=== PATIENT | male | born 1955 | race Caucasian/White ===

== ENCOUNTER 2016-10-24 08:44 | Emergency (ER) | payer MEDICARE, BC ==
--- NOTE | ~2016-10-24 | CT2 ---
[facility] A Service of [facility] / [facility] RADIOLOGY TEXT RESULTS PATIENT: CASSIE PEDERSON LOCATION: SED : 54 UNIT #: [id number] AGE: [address]: Jasmine Monterroso MD SEX: M ORDER DR: [id number] MR#: [id number] Acc #: [id number] NAME: CASSIE PEDERSON. : 1955 SEX: M STUDY DATE/TIME: 10/24/2016 11:18 UNIT: SED ROOM: STUDY DESCRIPTION: CT Abd and Pelv W Cont Attending Physician: Jasmine Monterroso M.D. Ordering Physician: Jasmine Monterroso M.D. Primary Care Physician: Jacinto Glynn M.D. MEDICAL IMAGING REPORT This report is preliminary unless electronic signature is present. EXAM Abdomen and pelvis CT with contrast HISTORY Bloody stools for the past 2 days after taking Naproxen for the past week. TECHNIQUE Axial images were obtained with oral and intravenous contrast. 100 mL of Isovue was used. This CT exam was performed with one or more of the following radiation dose reduction techniques: automatic control, adjustment of mA and/or kV according to patient size, and iterative reconstruction. FINDINGS Mild fibrotic changes are seen at both lung bases posteriorly. No upper abdominal solid organ abnormalities are seen. There is no evidence of retroperitoneal adenopathy. There is no evidence of free air in the peritoneal cavity. No distended bowel loops are seen. The appendix is normal. Scans into the pelvis show no evidence of pelvic adenopathy, mass or fluid collection. IMPRESSION Negative abdomen and pelvis CT. No acute or inflammatory changes are seen. Dictated by... Jacinto Arias M.D. THIS IS AN ELECTRONICALLY VERIFIED REPORT Jacinto Arias M.D. at 10/25/2016 10:56 AM RLF/rnr [facility] A Service of [facility] / [facility] RADIOLOGY TEXT RESULTS PATIENT: CASSIE PEDERSON LOCATION: SED : 54 UNIT #: [id number] AGE: [address]: Jasmine Monterroso MD SEX: M ORDER DR: TD: 10/25/2016 09:07 JOB #: [id number] MEDICAL IMAGING REPORT Page 1 of 1
[~2016-10-24 08:44] MED LIST: ALBUTEROL17 GM INH; ALLEGRA ALLERG180 MG PO; ALLEGRA PO; ANDROGEL5 GM TD; ARTIFICIAL15 ML OPTH OU; ASPIRIN325 M1 PO; ASTEPRO; AUGMENTIN875 M1 PO; CELEXA PO; CELEXA20 MG PO; CILOXAN5 ML; CILOXAN5 ML OP; COUMADIN3 MG PO; FLONASE 0.05% N16 G1; HYDROCODON-ACE1 EAC7 PO; HYDROMET SYRUP480 ML PO; MECLIZINE HCL25 M1 PO; MEDROL PO; METOPROLOL TAR25 MG PO; MULTI-VITAMIN1 TAB PO; MULTIVITAMIN1 UDCAP PO; NEOMYCIN/POLY/7.5 ML OU; NORCO 10-325 TA1 TAB PO; PREDNISONE PO; SINGULAIR PO; TASPRIN325 MG PO; TESTOST CYP; TYLENOL325 M1 PO; TYLOX 5/500 CAP1 CAP PO; VITAMIN D50000 UNIT PO; VOLTAREN75 MG PO; WELLBUTRIN XL PO
[2016-10-24 10:04] LABS: BASOPHIL% 0.9 % (0-2.5); EOSINOPHIL# 0.1 X10e3 (0-0.7); EOSINOPHIL% 1.1 % (0.0-7.0); HEMATOCRIT 45.1 % (38.0-50.0); LYMPHOCYTE# 1.2 X10e3 (1.0-3.5); LYMPHOCYTE% 22.6 % (17.0-45.0); MEAN CELL VOLUME 91.5 FL (83-96); MEAN CORPUSCULAR HEMOGLOBIN 30.3 PG (28-34); MEAN CORPUSCULAR HGB CONC 33.2 g/dL (30-36); MEAN PLATELET VOLUME 9.1 FL (6.5-11.5); MONOCYTE# 0.5 X10e3 (0-1.0); MONOCYTE% 10.3 % (3.0-12.0); NEUTROPHIL# 3.5 X10e3 (1.5-7.1); NEUTROPHIL% 65.1 % (40-75); PLATELET COUNT 185 X10e3 (140-420); RED BLOOD COUNT 4.93 X10e (3.90-5.60); WHITE BLOOD COUNT 5.3 X10e3 (4.0-10.5)
[2016-10-24 10:08] LABS: DIFF IND NO
[2016-10-24 10:10] LABS: INR 1.1; PROTHROMBIN TIME (PATIENT) 12.6 SECONDS (9.5-12.4)
[2016-10-24 10:17] LABS: PARTIAL THROMBOPLASTIN TIME 26.6 SECONDS (25.6-38.1)
[2016-10-24 10:19] LABS: ALBUMIN SERUM 4.3 g/dL (3.5-5.0); BILIRUBIN, DIRECT 0.1 mg/dL (0.0-0.2); BILIRUBIN,INDIRECT 0.8 mg/dL (0.0-0.9); BILIRUBIN,TOTAL 0.9 mg/dL (0.2-2.0); BUN/CREATININE RATIO 20.83; CALCIUM SERUM 8.4 mg/dL (8.4-10.2); CREATININE SERUM 1.2 mg/dL (0.6-1.4); GLOM FILT RATE Estimated 64.4 mL/min (>60); POTASSIUM 4.4 mmol/L (3.5-5.1); PROTEIN TOTAL SERUM 6.9 g/dL (6.0-8.3)
[2016-10-25] MEDS ORDERED: VITAMIN D 22000 UNIT PO (11:26)
[2016-10-25] MEDS ORDERED: CELEXA20 MG PO (11:27)
[2016-10-25] MEDS ORDERED: WELLBUTRIN SR150 MG PO (11:27)
[2016-10-25] MEDS ORDERED: TESTOSTERO200 MG/1 M IM (11:27)
== END 2016-10-24 12:36 | disposition left against medical advice (07) ==
LOC: SED 08:44
PROVIDERS: Student in an Organized Health Care Education/Training Program
DX: K92.1 Melena (principal); I48.91 Unspecified atrial fibrillation; F41.9 Anxiety disorder, unspecified
CPT/HCPCS: 36415; 74177; 80048; 80076; 82270; 85025; 85610; 85730; 96374; 96375; 99284; C9113; J2405; Q9967

== ENCOUNTER 2016-10-25 10:07 | Inpatient (IN) | payer MEDICARE, BC ==
[~2016-10-25] VITALS: Ht 182.9 cm; Wt 125.5 kg
--- NOTE | ~2016-10-25 | HP ---
Unit #: [id number] #: [id number] Patient: CASSIE PEDERSON [id number] [facility]. [place], [place] [address] [id number] I MR#: [id number] NAME: CASSIE PEDERSON. ROOM: 239 Age: 61 Sex: M Admission Date: 10/25/2016 : 1955 Attending Physician: Mikey Zacarias M.D. Primary Care Physician: Jacinto Glynn M.D. HISTORY AND PHYSICAL HISTORY OF PRESENT ILLNESS 61-year-old white male, history of paroxysmal atrial fibrillation, hypogonadism, obstructive sleep apnea syndrome, generalized anxiety disorder, major depressive disorder, chronic low back pain, ventral hernia repair, history of peptic ulcer disease at age 17 requiring some sort of surgery as well as a vagotomy. He has had a lumbar diskectomy, right total knee replacement, right total hip replacement. He was admitted through the emergency room with maroon colored stools for the past 3 days. Apparently he was seen at [facility] the day prior to admission but we had no beds available at [place]. He refused to go to [facility], ended up coming in yesterday, the , to our emergency room where he was found to be heme positive from below. His hemoglobin, platelets and coags are all normal. He is admitted, NPO, scheduled for EGD this morning. Currently, he has no complaints. He has had no abdominal pain, nausea or vomiting. He has been apparently taking an old prescription for Naproxen although he is taking more than the normal dose for recurrent low back pain. He also takes p.r.n. Excedrin and drinks beer but not on a daily basis. He had a negative colonoscopy 6 or 7 months ago, according to the patient, but it is not in our system here at [place]. In any case, he is admitted for further evaluation. His hemoglobins remained normal and stable since he was seen at [facility]. His initial hemoglobin was 15. It is currently 13. ALLERGIES He has stated allergies to Synvisc. MEDS PRIOR TO ADMISSION 1. Vitamin D 50,000 units weekly. 2. Zyban SR 150 mg daily. 3. Celexa 20 mg daily. 4. Testosterone 200 mg IV q.2 weeks. PAST MEDICAL HISTORY 1. He has a history of generalized anxiety disorder. 2. Major (1) disorder. 3. Paroxysmal atrial fibrillation. 4. Peptic ulcer disease. 5. Osteoarthritis. 6. He has had lumbar diskectomy x2. 7. Right knee laparoscopy. 8. Right knee replacement. 9. Right hip replacement. 10. Umbilical hernia repairs. 11. Stomach ulcer surgery in 1974. Unit #: [id number] #: [id number] Patient: CASSIE PEDERSON 12. Gastric sleeve. SOCIAL HISTORY Nonsmoker. Drinks beer on the weekends. No street drug use. FAMILY HISTORY Noncontributory. PHYSICAL EXAM GENERAL: He is awake, alert, oriented x3 in no acute distress. VITAL SIGNS: Afebrile. Pulse 78, respirations 20, blood pressure 117/79. O2 sats 97% on room air. HEENT: Unremarkable. NECK: Supple without JVD, bruits, adenopathy or thyromegaly. CHEST: Clear to auscultation. HEART: Regular rate and rhythm without any murmurs, rubs or gallops. ABDOMEN: Soft, nondistended, nontender with positive bowel sounds and no hepatosplenomegaly. EXTREMITIES: No clubbing, cyanosis or edema. /RECTAL: Deferred. NEUROLOGICAL: Grossly intact. DIAGNOSTIC STUDIES LABORATORY: Lab values - initial CBC completely normal with hemoglobin of 15. This morning his hemoglobin of 13, everything remains normal. CMP is normal except for a BUN of 25. PT and PTT are normal x2 sets. IMAGING: CT scan of the abdomen and pelvis within normal limits. Stool for occult blood positive. IMPRESSION 1. GI bleed, most likely upper GI bleed. 2. History of peptic ulcer disease. 3. Status post gastric sleeve. 4. Azotemia. 5. History of paroxysmal atrial fibrillation. 6. Hypogonadism. 7. Obstructive sleep apnea syndrome. 8. Generalized anxiety disorder. 9. Major depressive disorder. 10. Status post lumbar diskectomy. 11. Status post right total knee replacement. 12. Status post right total hip replacement. PLAN NPO, IV proton pump inhibitors, EGD, serial H and H's. Further evaluation per upper endoscopy. Dictated by Mikey Zacarias M.D. BRIAN/anju Unit #: [id number] #: [id number] Patient: CASSIE PEDERSON TD: 10/26/2016 08:25 JOB #: [id number] HISTORY AND PHYSICAL Page 1 of 1 X Mikey Zacarias MD X HISTORY AND PHYSICAL
--- NOTE | ~2016-10-25 | CO ---
Unit #: [id number] #: [id number] Patient: CASSIE PEDERSON [id number] [address] [place], [place] [address] [id number] I MR#: [id number] NAME: CASSIE PEDERSON. ROOM: 239 Age: 61 Sex: M Admission Date: 10/25/2016 : 1955 Attending Physician: Mikey Zacarias M.D. Primary Care Physician: Jacinto Glynn M.D. Consultation Date: 10/26/2016 CONSULTATION REPORT ADDITIONAL ATTENDING PHYSICIAN Mikey Mora M.D. PRIMARY CARE PHYSICIAN Jacinto Glynn M.D. REASON FOR CONSULTATION Anemia of gastrointestinal blood loss. HISTORY OF PRESENT ILLNESS Mr. Pederson is a 61-year-old white gentleman, who is admitted because of history of melena for the past 3 days. In addition, he has been found to have Hemoccult-positive stools. At the time of admission, there was not a significant drop in his hemoglobin. It is noteworthy, he had a normal colonoscopy 6 to 7 months ago. His hemoglobin actually at admission was 13. It was 15 in [facility] where he initially presented. PAST MEDICAL HISTORY Significant for history of paroxysmal atrial fibrillation, obstructive sleep apnea, major depressive disorder, chronic low back pain, and history of peptic ulcer disease. He has also history of osteoarthrosis. PAST SURGICAL HISTORY Included a lumbar diskectomy, history of right knee replacement and right hip replacement, repair of umbilical hernia, and gastric surgery with some sort more than 20 years ago. SOCIAL HISTORY Drinks a beer occasionally on weekend. Does not smoke. FAMILY HISTORY No family history of colon, pancreatic cancer, or liver disease. MEDICATIONS At home included Celexa, Zyban, testosterone. ALLERGIES Allergic to Synvisc. REVIEW OF SYSTEMS Detailed review of organ systems does not reveal any recent weight loss. No history of fever, chills, or rigors. No history of headache, seizures, chest pain, or syncope. No history of cough, expectoration, or hemoptysis. No history of dysuria, hematuria, or pyuria. No history of Unit #: [id number] #: [id number] Patient: CASSIE PEDERSON focal seizures or extremity weakness. PHYSICAL EXAMINATION GENERAL: He is alert and oriented and appears comfortable. VITAL SIGNS: Stable with a temperature of 97.9, pulse is 71 per minute and regular, respiratory rate is 18, and blood pressure is 124/71. He weighs 276 pounds and his baseline weight in the past has been about 240 pounds. HEENT: He has no pallor, icterus, lymphadenopathy, or peripheral edema. CARDIOVASCULAR: Normal heart sounds. No murmurs on auscultation. LUNGS: Reveals normal breath sounds. Good air entry. ABDOMEN: Soft and nontender. Liver and spleen are not palpable. Bowel sounds normal. DIAGNOSTIC STUDIES LABORATORY RESULTS: Shows a hemoglobin of 13.0. Day before yesterday, it was 15. His BUN and creatinine are normal. CLINICAL IMPRESSION It is highly unlikely the patient has a major gastrointestinal bleed in view of relative normality of the CBC and BUN and creatinine. He is status post gastric surgery by several years and is more prone to have gastric cancer as a result. I am not sure what kind of surgery he had, whether he had any Billroth I or II surgery which would predispose him into increased risk of delayed gastric cancer. A diagnostic upper GI endoscopy is therefore being scheduled for later today. The pros and cons of procedure, potential risks, and complications were discussed with the patient and he was reassured. Thank you for asking me to see this pleasant gentleman. I appreciate the consult. Dictated by... Savanna Antunez/steven TD: 11/04/2016 17:14 JOB #: [id number] CC: Savanna Hebert M.D. Robert G. Hammer, M.D. CONSULTATION REPORT Page 1 of 1 X Arsalan Avila MD X CONSULTATION REPORT
--- NOTE | ~2016-10-25 | OR ---
Unit #: [id number] #: [id number] Patient: CASSIE PEDERSON [id number] [facility]. [place], [place] [address] [id number] I MR#: [id number] NAME: CASSIE PEDERSON. ROOM: 239 Date of Procedure: 10/26/2016 Admission Date: 10/25/2016 Surgeon: Arsalan Avila M.D. : 1955 Attending Physician: Mikey Zacarias M.D. Primary Care Physician: Jacinto Glynn M.D. PROCEDURE OPERATIVE NOTE PREOPERATIVE DIAGNOSES "GI bleed." PROCEDURES PERFORMED Upper gastrointestinal endoscopy. POSTOPERATIVE DIAGNOSES The patient had post surgical changes of (1) , otherwise examination was normal up third part of duodenum. No mucosal abnormalities whatsoever seen. RECOMMENDATIONS The patient can be discharged home from gastrointestinal standpoint. It is also noteworthy that his hemoglobin is stable at between 12 to 13. SEDATION USED MAC. PROCEDURE DESCRIPTION Following detailed explanation of potential risks and complications of an upper endoscopy, namely perforation, bleeding, and complication related to sedation, procedure was brought to GI lab and laid in the left lateral decubitus position. Lubricated tip of the Olympus video upper endoscope was passed through the bite block into the proximal esophagus under direct vision. The entire esophageal mucosa was examined and appeared normal. Z-line was Nicely demarcated, there being no esophagitis or hiatus hernia. The scope was then advanced into the gastric cavity and the latter was insufflated. Mucosa of the fundus, body, and antrum was examined and the patient was noted to have evidence of pyloroplasty with wide open antral area. The duodenal bulb, second and third part of duodenum were then seen and appeared normal. Upon withdrawal and retroflexion, incisura, cardia, and greater curve examined and appeared normal. The scope was then withdrawn in the distal esophagus. The entire esophageal mucosa was examined all the way up to pharynx and no additional findings noted. The patient tolerated the procedure without any postprocedure complications. Dictated by... Arsalan Avila M.D. AK/ts Unit #: [id number] #: [id number] Patient: CASSIE PEDERSON TD: 11/02/2016 09:55 JOB #: [id number] PROCEDURE OPERATIVE NOTE Page 1 of 1 X Arsalan Avila MD PROCEDURE OPERATIVE NOTE
--- NOTE | ~2016-10-25 | DS ---
Unit #: [id number] #: [id number] Patient: CASSIE PEDERSON [id number] [place], [place] [address] [id number] I MR#: [id number] NAME: CASSIE PEDERSON. ROOM: 239 Age: 61 Sex: M Admission Date: 10/25/2016 : 1955 Discharge Date: 10/27/2016 Attending Physician: Mikey Zacarias M.D. Primary Care Physician: Jacinto Glynn M.D. DISCHARGE SUMMARY PRINCIPAL DISCHARGE DIAGNOSES 1. Gastrointestinal bleed. 2. Mild anemia. 3. Mild azotemia. 4. Recent nonsteroidal anti-inflammatory drug use. 5. History of peptic ulcer disease status post vagotomy, pyloroplasty. 6. Status post gastric sleeve. 7. History of paroxysmal atrial fibrillation. 8. Hypogonadism. 9. Obstructive sleep apnea syndrome. 10. Generalized anxiety disorder. 11. Major depressive disorder. 12. Status post right total hip replacement. 13. Status post right total knee replacement. 14. Status post lumbar diskectomy. CONSULTANTS Dr. Arsalan Avila. PROCEDURES EGD without biopsy on 10/26/16. HISTORY OF PRESENT ILLNESS Ealiv-lzn-sdzd-old black male, history of paroxysmal atrial fibrillation, hypogonadism, obstructive sleep apnea syndrome, generalized anxiety disorder, major depressive disorder, chronic low back pain, vagotomy, pyloroplasty ate age 17 for a peptic ulcer, status post right total knee and right total hip replacements, admitted with maroon colored stool for the past 3 days. He had been taking Naprosyn, which was an old prescription, for recurrent low back pain. He does drink alcohol on a fairly frequent basis. He had had no abdominal pain, nausea or vomiting. His hemoglobin on admission was 15. It fell to 13. His coags, platelets were all normal. Stool for occult blood was positive. CT scan of the abdomen and pelvis showed no active disease. CMP was normal except for a BUN of 28, and he was admitted. HOSPITAL COURSE The patient was admitted to a regular bed. H and H's were followed. He was seen in consultation by Dr. Avila, underwent EGD on the that showed postop changes of partial gastric sleeve. Pyloroplasty was otherwise normal without any ulcers or other potential obvious sources of bleeding. He had had a colonoscopy 07/31/[address] Auguste at [facility] that showed to be within normal limits except for some diverticulosis, and this may well be the cause of his bleeding, although with the azotemia, we suspected it Unit #: [id number] #: [id number] Patient: CASSIE PEDERSON was peptic ulcer disease, especially with his history. In any case, his hemoglobin this morning is 12.7. It was 13 yesterday. His BMP is completely within normal limits now, and he appears to be stable for outpatient followup. I have discussed with the patient if he continues to bleed, he will need to have a repeat colonoscopy and possibly small bowel studies, as well. FOLLOWUP He will follow up with Dr. Glynn with a CBC in 1 week. DISCHARGE DIET He is on a regular diet as tolerates. DISCHARGE INSTRUCTIONS He is instructed not to take any aspirin or NSAIDs. DISCHARGE MEDICATIONS He is given a prescription for Protonix 40 mg 1 p.o. daily. He is to resume his home meds - testosterone cypionate 200 mg IM q.2 weeks, Zyban SR 150 mg daily, Celexa 20 mg daily, vitamin D 50,000 units weekly, and he can take Tylenol 650 p.o. q.6 p.r.n. for pain. Dictated by... Mikey Zacarias M.D. BRIAN/joel TD: 10/28/2016 08:08 JOB #: [id number] DISCHARGE SUMMARY Page 1 of 1 X Mikey Zacarias MD X DISCHARGE SUMMARY
[2016-10-25 11:15] LABS: BASOPHIL% 0.7 % (0-2.5); EOSINOPHIL# 0.1 X10e3 (0-0.7); HEMATOCRIT 41.2 % (38.0-50.0); HEMOGLOBIN 13.8 gm/dL (13.0-16.0); LYMPHOCYTE# 1.4 X10e3 (1.0-3.5); LYMPHOCYTE% 26.3 % (17.0-45.0); MEAN CELL VOLUME 90.6 FL (83-96); MEAN CORPUSCULAR HEMOGLOBIN 30.4 PG (28-34); MEAN CORPUSCULAR HGB CONC 33.5 g/dL (30-36); MEAN PLATELET VOLUME 8.9 FL (6.5-11.5); MONOCYTE# 0.5 X10e3 (0-1.0); MONOCYTE% 9.3 % (3.0-12.0); NEUTROPHIL# 3.5 X10e3 (1.5-7.1); NEUTROPHIL% 62.7 % (40-75); PLATELET COUNT 183 X10e3 (140-420); RED BLOOD COUNT 4.54 X10e (3.90-5.60); WHITE BLOOD COUNT 5.5 X10e3 (4.0-10.5)
[2016-10-25 11:18] LABS: DIFF IND NO
[2016-10-25] MEDS ORDERED: VITAMIN D 22000 UNIT PO (11:26)
[2016-10-25] MEDS ORDERED: TESTOSTERO200 MG/1 M IM (11:27)
[2016-10-25] MEDS ORDERED: WELLBUTRIN SR150 MG PO (11:27)
[2016-10-25] MEDS ORDERED: CELEXA20 MG PO (11:27)
[2016-10-25 11:42] LABS: INR 1.1; PARTIAL THROMBOPLASTIN TIME 24.8 SECONDS (23.5-31.3); PROTHROMBIN TIME (PATIENT) 11.4 SECONDS (10.0-11.7)
[2016-10-25 11:52] LABS: ALBUMIN SERUM 3.9 g/dL (3.5-5.0); BILIRUBIN, DIRECT 0.1 mg/dL (0.0-0.2); BILIRUBIN,INDIRECT 0.1 mg/dL (0.0-0.9); BILIRUBIN,TOTAL 0.2 mg/dL (0.2-2.0); CALCIUM SERUM 8.6 mg/dL (8.4-10.2); GLOM FILT RATE Estimated 80.3 mL/min (>60); POTASSIUM 4.4 mmol/L (3.5-5.1); PROTEIN TOTAL SERUM 6.7 g/dL (6.0-8.3)
[2016-10-26 06:07] LABS: BASOPHIL% 0.8 % (0-2.5); EOSINOPHIL# 0.1 X10e3 (0-0.7); EOSINOPHIL% 1.7 % (0.0-7.0); HEMATOCRIT 38.3 % (38.0-50.0); LYMPHOCYTE# 1.7 X10e3 (1.0-3.5); LYMPHOCYTE% 28.5 % (17.0-45.0); MEAN CELL VOLUME 91.1 FL (83-96); MEAN CORPUSCULAR HEMOGLOBIN 30.9 PG (28-34); MEAN CORPUSCULAR HGB CONC 33.9 g/dL (30-36); MEAN PLATELET VOLUME 8.8 FL (6.5-11.5); MONOCYTE# 0.6 X10e3 (0-1.0); MONOCYTE% 9.6 % (3.0-12.0); NEUTROPHIL# 3.5 X10e3 (1.5-7.1); NEUTROPHIL% 59.4 % (40-75); PLATELET COUNT 177 X10e3 (140-420); RED BLOOD COUNT 4.21 X10e (3.90-5.60); RED CELL DISTRIBUTION WIDTH 15.8 % (11.0-15.5); WHITE BLOOD COUNT 5.9 X10e3 (4.0-10.5)
[2016-10-26 06:21] LABS: DIFF IND NO
[2016-10-27 06:31] LABS: BASOPHIL% 0.9 % (0-2.5); EOSINOPHIL# 0.1 X10e3 (0-0.7); HEMATOCRIT 38.1 % (38.0-50.0); HEMOGLOBIN 12.7 gm/dL (13.0-16.0); LYMPHOCYTE# 1.3 X10e3 (1.0-3.5); LYMPHOCYTE% 28.1 % (17.0-45.0); MEAN CELL VOLUME 91.1 FL (83-96); MEAN CORPUSCULAR HEMOGLOBIN 30.4 PG (28-34); MEAN CORPUSCULAR HGB CONC 33.4 g/dL (30-36); MEAN PLATELET VOLUME 8.9 FL (6.5-11.5); MONOCYTE# 0.5 X10e3 (0-1.0); MONOCYTE% 9.8 % (3.0-12.0); NEUTROPHIL# 2.7 X10e3 (1.5-7.1); NEUTROPHIL% 59.2 % (40-75); PLATELET COUNT 180 X10e3 (140-420); RED BLOOD COUNT 4.18 X10e (3.90-5.60); RED CELL DISTRIBUTION WIDTH 15.8 % (11.0-15.5); WHITE BLOOD COUNT 4.6 X10e3 (4.0-10.5)
[2016-10-27 06:33] LABS: DIFF IND NO
[2016-10-27 07:15] LABS: CALCIUM SERUM 8.2 mg/dL (8.4-10.2); GLOM FILT RATE Estimated 80.3 mL/min (>60)
[2016-10-27] MEDS ORDERED: PROTONIX PO (07:59)
== END 2016-10-27 11:24 | disposition home or self-care (01) | DRG 379 ==
LOC: CED 10:07 → C2A 13:24 → CEDOF 13:24 → C2A 13:41
PROVIDERS: Emergency Medicine; Internal Medicine; Internal Medicine Gastroenterology; Physician Assistant Medical
PROC: 0DJ08ZZ Inspection of Upper Intestinal Tract, Via Natural or Artificial Opening Endoscopic (ICD-10-PCS; principal; 2016-10-26 17:50)
DX: K57.91 Diverticulosis of intestine, part unspecified, without perforation or abscess with bleeding (principal); I48.0 Paroxysmal atrial fibrillation; F32.9 Major depressive disorder, single episode, unspecified; D64.9 Anemia, unspecified; R79.89 Other specified abnormal findings of blood chemistry; E29.1 Testicular hypofunction; G47.33 Obstructive sleep apnea (adult) (pediatric); F41.1 Generalized anxiety disorder; G89.29 Other chronic pain; M54.5 Low back pain; Z96.641 Presence of right artificial hip joint; Z96.651 Presence of right artificial knee joint
CPT/HCPCS: 36415; 74177; 80048; 80076; 82270; 85025; 85610; 85730; 86850; 86900; 86901; 96361; 96374; 96375; 99284; C9113; J2405; Q9967